=== PATIENT | female | born 1970 | race Caucasian/White ===

== ENCOUNTER 2016-04-25 17:24 | Emergency (ER) | payer MEDICAID ==
[2015-11-29 12:59] VITALS: BMI 46.0
[~2016-04-25 17:24] MED LIST: CARAFATE1 G PO; CLARITIN 10 MG10 MG PO; CYCLOBENZAPRINE10 MG PO; ESGIC TABLET1 TAB PO; HYDROCODONE-APA1 TAB PO; K-TAB10 MEQ PO; LASIX20 MG PO; NICODERM C1 PATCH .1 TRANSDERM; PEPCID AC20 MG PO; PROAIR HFA8.5 GM INH; PROPRANOLOL HCL80 MG PO; PROZAC10 MG PO
== END 2016-04-25 20:28 | disposition home or self-care (01) ==
LOC: D.ER 17:24
DX: M54.5 Low back pain (principal); F17.200 Nicotine dependence, unspecified, uncomplicated; K21.9 Gastro-esophageal reflux disease without esophagitis; I10 Essential (primary) hypertension

== ENCOUNTER → 2018-06-20 | Emergency (ER) | payer MEDICAID ==
[~2018-06-20] VITALS: Ht 160 cm; Wt 104.5 kg
[~2018-06-20] MED LIST changes: +ULTRAM50 MG PO
[2018-06-20 14:59] VITALS: Ht 160 cm; Wt 104.5 kg
[2018-06-20 17:06] VITALS: BP 132/79
== END | disposition home or self-care (01) ==
LOC: D.ER 14:49
DX: M65.222 Calcific tendinitis, left upper arm (principal)

== ENCOUNTER → 2018-07-15 09:57 | Outpatient (CLI) | payer MEDICAID | END | disposition home or self-care (01) | LOC: D.US 09:57 | DX: D17.1 Benign lipomatous neoplasm of skin and subcutaneous tissue of trunk (principal) ==

== ENCOUNTER → 2020-05-30 12:36 | Outpatient (CLI) | payer MEDICAID ==
[2018-06-20 14:59] VITALS: BMI 40.8
== END | disposition home or self-care (01) ==
LOC: D.US 12:36
PROVIDERS: ATTEND Family Medicine
DX: N63.12 Unspecified lump in the right breast, upper inner quadrant (principal)